=== PATIENT | female | born 1965 | race African-American/Black ===

== ENCOUNTER 2017-09-24 14:18 | Emergency (ER) | payer OTHER ==
[2017-09-24] MEDS ORDERED: Morphine 5 MG/ML SYRINGE ONE (14:40)
[2017-09-24] MEDS ORDERED: Ondansetron PF 4 MG/2 ML Vial ONE (14:41)
[2017-09-24 14:42] LABS: #Basophils 0.1 thou/uL (0.0-0.2); #Eosinphils 0.2 thou/uL (0.0-0.7); #Lymphocytes 3.3 thou/uL (1.20-3.40); #Monocytes 0.5 thou/uL (0.11-0.59); #Neutrophils 4.9 thou/uL (1.40-6.50); %Basophils 1.6 % (0.0-1.0); %Lymphocytes 36.9 % (21.0-51.0); %Monocytes 5.5 % (0.0-10.0); %Neutrophils 54.1 % (42.0-75.0); Hemoglobin 14.5 g/dL (12.0-16.0); Mean Corpuscular HGB CONC 34.7 g/dL (32.0-36.0); Mean Corpuscular Volume 83.6 fl (81.0-99.0); Mean Platelet Volume 5.8 fL (7.4-10.4); Platelet Count 388 thou/uL (130-400); RBC Distribution Width 12.9 % (11.5-14.5)
[2017-09-24 15:41] LABS: Bilirubin Negative (Negative); Blood, Urine Negative (Negative); Clarity Clear (Clear); Glucose, Urine (Dipstick) Negative (Negative); Leukocyte Negative (Negative); Nitrite Negative (Negative); Protein, Urine (Dipstick) Negative (Neg-Trace); Urobilinogen 0.2 mg/dL (0.2-1.0)
[2017-09-24] MEDS ORDERED: Metoclopramide HCl 10 MG/2 ML VIAL ONE (15:43)
[2017-09-24 15:45] LABS: ALT (SGPT) 36 U/L (8-55); AST (SGOT) 25 U/L (5-34); Albumin 3.6 g/dL (3.5-5.0); Alkaline Phosphatase 103 U/L (40-150); Anion Gap 15 mmol/L (10-20); BUN (Urea Nitrogen) 6 mg/dL (7.0-18.7); Bilirubin, Total 0.7 mg/dL (0.2-1.2); Calc. Creatinine Clearance 0 mL/min (70-130); Calcium 9.1 mg/dL (7.8-10.44); Carbon Dioxide 21 mmol/L (22-29); Chloride 106 mmol/L (98-107); Estimated GFR-MDRD Greater than 90; Globulin 3.1 g/dL (2.4-3.5); Glucose 98 mg/dL (70-105); Protein, Total 6.7 g/dL (6.0-8.3); Sodium 138 mmol/L (136-145)
--- NOTE | 2017-09-24 16:16 | CT ---
CT ABDOMEN AND PELVIS WITH CONTRAST: INDICATIONS: Abdominal pain. Right lower quadrant pain. TECHNIQUE: Multiple axial tomograms obtained through the abdomen and pelvis with IV enhancement. FINDINGS: The lung bases are clear. The liver, spleen, and pancreas are unremarkable. The adrenal glands are normal. The kidneys are unremarkable. The urinary bladder appears unremarkable. The jejunum is abnormally positioned and does not cross the midline. There is mild distention of the proximal jejunum. Small bowel loops are otherwise of normal caliber but are abnormally positioned w ith small bowel loops positioned into the right abdomen. The colon is positioned into the left abdom en. The cecum is abnormally positioned in the left pelvis. The appendix is identified and appears u nremarkable with no evidence of appendicitis. The appendix is located deep in the pelvis. The aorta is of normal caliber. The patient appears to be post hysterectomy. IMPRESSION: 1. Evidence of intestine malrotation. The cecum and ascending colon are abnormally positioned in th e left abdomen, and the tip of the cecum and appendix are located deep in the left pelvis. The appen kike appears normal. 2. Mild nonspecific distention of proximal jejunal loops. POS: SHANNA
== END 2017-09-24 16:30 | disposition home or self-care (01) ==
LOC: SCSER 14:18
DX: R10.31 Right lower quadrant pain (principal)
CPT/HCPCS: 74177; 80053; 81003; 85025; 96361; 96365; 96375; J2270; J2405; J2765

== ENCOUNTER 2017-11-18 17:00 | Outpatient (CLI) | payer OTHER | END 2017-11-18 17:01 | disposition home or self-care (01) | LOC: SLEEPLAB 17:00 | PROVIDERS: ATTEND Family Medicine | DX: G47.33 Obstructive sleep apnea (adult) (pediatric) (principal); R53.83 Other fatigue; I10 Essential (primary) hypertension; E66.9 Obesity, unspecified; Z68.38 Body mass index [BMI] 38.0-38.9, adult | CPT/HCPCS: 95806 ==

== ENCOUNTER 2018-02-07 07:55 | Day surgery (SDC) | payer OTHER ==
--- NOTE | 2018-02-06 00:35 | HP ---
DATE OF ADMISSION: 02/07/2018 HISTORY OF PRESENT ILLNESS: This is a 52-year-old female, who comes in for colonosc opy for colon cancer screening. The patient has no specific GI symptoms. There is no family history of colon cancer. ALLERGIES: BACTRIM. SOCIAL HISTORY: The patient does not smoke or drink alcohol. MEDICAL ILLNESSES: 1. Diabetes mellitus. 2. Obesity. 3. Chronic seasonal allergies. 4. Osteoarthritis. PHYSICAL EXAMINATION: VITAL SIGNS: Pulse is 70, blood pressure 130/80. HEENT: Conjunctivae clear. CARDIOVASCULAR: First and second heart sounds normal. LUNGS: Clear to auscultation. ABDOMEN: Soft. Abdomen is nontender. There is no organomegaly. No masses. Bowel sounds are alexandru l. ADMITTING DIAGNOSIS: A 52-year-old -[place] female, comes in for a colonoscopy for colon can cer screening.
[2018-02-06 12:30] VITALS: BMI 38.9
--- NOTE | 2018-02-07 11:18 | OP ---
DATE OF PROCEDURE: 02/07/2018 SURGEON: Zion Caballero M.D. OPERATIVE PROCEDURE: Colonoscopy. PREOPERATIVE DIAGNOSIS: Colon cancer screening. POSTOPERATIVE DIAGNOSES: Normal colonoscopy except for hemorrhoids. PROCEDURE IN DETAIL: The patient was placed on her left lateral position and was given sedation by A nesthesia Department. A rectal exam was done before the scope was advanced into the rectum. The pat ient noted to have external hemorrhoids. No other lesions felt. A [employer]ax video colonoscope was intr oduced into the rectum and advanced all the way into the cecum. The mucosa appears normal throughout the colon with normal vascular pattern. The cecum, ascending colon and hepatic flexure, no patholog y seen. The transverse colon, splenic flexure, descending colon, and sigmoid colon, no lesions. Ret roflexion of scope in the rectum showed hemorrhoids. The patient did have some retained fecal residu e which was washed out. DISCHARGE PLANNING: This is a 52-year-old female referred to me for a colonoscopy f or colon cancer screening. The patient underwent colonoscopy and had no pathology. The patient did have some retained fecal residue which appears more vegetable matter which was washed out. The patie nt had hemorrhoids and no other pathology seen. DISCHARGE RECOMMENDATIONS: 1. The patient was advised to call me if she develops abdominal pain, hematochezia or fever. 2. In the absence of any of the above symptoms she will come back to me in 2 weeks. 3. Recommend repeat colonoscopy in 10 years.
[2018-02-07] MEDS ORDERED: Lidocaine 1% PF 5 ML VIAL ONE (14:44)
[2018-02-07] MEDS ORDERED: PROPOFOL 200 MG/20 ML VIAL ONE (14:44)
== END 2018-02-07 09:50 | disposition home or self-care (01) ==
LOC: SDC 07:55
PROVIDERS: ATTEND Internal Medicine Gastroenterology
PROC: 0DJD8ZZ Inspection of Lower Intestinal Tract, Via Natural or Artificial Opening Endoscopic (ICD-10-PCS; principal; 2018-02-07)
DX: Z12.11 Encounter for screening for malignant neoplasm of colon (principal); E11.9 Type 2 diabetes mellitus without complications; E66.9 Obesity, unspecified; Z79.84 Long term (current) use of oral hypoglycemic drugs; Z88.2 Allergy status to sulfonamides
CPT/HCPCS: J2001; J2704

== ENCOUNTER 2018-02-21 14:49 | Outpatient (CLI) | payer OTHER | END 2018-02-21 14:50 | disposition home or self-care (01) | LOC: BICMAMMO 14:49 | PROVIDERS: ATTEND Family Medicine | DX: Z12.31 Encounter for screening mammogram for malignant neoplasm of breast (principal) | CPT/HCPCS: 77063; 77067 ==

== ENCOUNTER 2019-02-25 11:09 | Outpatient (CLI) | payer OTHER ==
--- NOTE | 2019-02-25 14:17 | MMO ---
Bilateral MAMMO Bilat Screen [facility]. CLINICAL HISTORY: Patient is 53 years old and is seen for screening. The patient has no family history of breast cancer. The patient has no personal history of cancer. VIEWS: The views performed were: bilateral craniocaudal with tomosynthesis and bilateral mediolateral oblique with tomosynthesis. FILMS COMPARED: The present examination has been compared to prior imaging studies performed at [facility] on 02/03/2015, 02/07/2016, 02/15/2017 and 02/21/2018. This study has been interpreted with the assistance of computer-aided detection. MAMMOGRAM FINDINGS: There are scattered fibroglandular densities. There are no suspicious masses, suspicious calcifications, or new areas of architectural distortion. IMPRESSION: THERE IS NO MAMMOGRAPHIC EVIDENCE OF MALIGNANCY. A ROUTINE FOLLOW-UP MAMMOGRAM IN 1 YEAR IS RECOMMENDED. THE RESULTS OF THIS EXAM WERE SENT TO THE PATIENT. ACR BI-RADS Category 1 - Negative MAMMOGRAPHY NOTE: 1. A negative mammogram report should not delay a biopsy if a dominant of clinically suspicious mass is present. 2. Approximately 10% to 15% of breast cancers are not detected by mammography. 3. Adenosis and dense breasts may obscure an underlying neoplasm. Reported by: RADHA ARCOS MD Electonically Signed: [id number]
== END 2019-02-25 11:10 | disposition home or self-care (01) ==
LOC: BICMAMMO 11:09
PROVIDERS: ATTEND Family Medicine
DX: Z12.31 Encounter for screening mammogram for malignant neoplasm of breast (principal)
CPT/HCPCS: 77063; 77067

== ENCOUNTER 2020-02-29 09:09 | Outpatient (CLI) | payer OTHER ==
--- NOTE | 2020-02-29 11:54 | MMO ---
Bilateral MAMMO Bilat Screen [facility]. CLINICAL HISTORY: Patient is 54 years old and is seen for screening. The patient has no family history of breast cancer. The patient has no personal history of cancer. VIEWS: The views performed were: bilateral craniocaudal with tomosynthesis and bilateral mediolateral oblique with tomosynthesis. FILMS COMPARED: The present examination has been compared to prior imaging studies performed at [facility] on 02/07/2016, 02/15/2017, 02/21/2018 and 02/25/2019. This study has been interpreted with the assistance of computer-aided detection. MAMMOGRAM FINDINGS: There are scattered fibroglandular densities. There are no suspicious masses, suspicious calcifications, or new areas of architectural distortion. IMPRESSION: THERE IS NO MAMMOGRAPHIC EVIDENCE OF MALIGNANCY. A ROUTINE FOLLOW-UP MAMMOGRAM IN 1 YEAR IS RECOMMENDED. THE RESULTS OF THIS EXAM WERE SENT TO THE PATIENT. ACR BI-RADS Category 1 - Negative MAMMOGRAPHY NOTE: 1. A negative mammogram report should not delay a biopsy if a dominant of clinically suspicious mass is present. 2. Approximately 10% to 15% of breast cancers are not detected by mammography. 3. Adenosis and dense breasts may obscure an underlying neoplasm. Reported by: JESSE FITZPATRICK MD Electonically Signed: [id number]
== END 2020-02-29 09:10 | disposition home or self-care (01) ==
LOC: BICMAMMO 09:09
PROVIDERS: ATTEND Family Medicine
DX: Z12.31 Encounter for screening mammogram for malignant neoplasm of breast (principal)
CPT/HCPCS: 77063; 77067

== ENCOUNTER 2021-04-07 07:50 | Outpatient (CLI) | payer OTHER | END 2021-04-07 07:51 | disposition home or self-care (01) | LOC: BICMAMMO 07:50 | PROVIDERS: ATTEND Family Medicine | DX: Z12.31 Encounter for screening mammogram for malignant neoplasm of breast (principal) | CPT/HCPCS: 77063; 77067 ==

== ENCOUNTER 2023-04-10 13:44 | Outpatient (CLI) | payer OTHER | END 2023-04-10 13:45 | disposition home or self-care (01) | LOC: BICMAMMO 13:44 | PROVIDERS: ATTEND Family Medicine | DX: Z12.31 Encounter for screening mammogram for malignant neoplasm of breast (principal) | CPT/HCPCS: 77063; 77067 ==

== ENCOUNTER 2024-04-20 14:49 | Outpatient (CLI) | payer OTHER | END 2024-04-20 14:50 | disposition home or self-care (01) | LOC: BICMAMMO 14:49 | PROVIDERS: ATTEND Family Medicine | DX: Z12.31 Encounter for screening mammogram for malignant neoplasm of breast (principal) | CPT/HCPCS: 77063; 77067 ==